=== PATIENT | male | born 1955 | race Caucasian/White ===

== ENCOUNTER 2022-06-02 12:44 | Outpatient (RCR) | payer MEDICARE, MEDICAID, SELFPAY ==
--- NOTE | 2022-06-02 14:21 | PTOPEVAL1 ---
Assessment and note entered by JT File, PT Evaluation Information Assessment Status Evaluation Diagnosis L L4 radiculopathy s/p lumbar fusion Subjective Information patient reports he is coming to therapy for rehab of his back after a fusion of L2-4. he reports he fell in july of this year on his tailbone/back 2 times. he reports since then he has had pain from his lower back down hi buttock and through the front of the thigh to the knee of the L LE. he reports the last 2-3 weeks the pain has been unbearable. he reports he had surgery back in may of 2018. he reports he has had no surgery since 2018. he reports he is complicated by arthritis in other joints, especially his knees. he reports he is haveing knee reaplcement on the L and R knee early next year. he reports he has had xrays taken of the lower back and reports initially he was told everything appears to be stable, but upon 2nd xray evaluation he was told his fusion may have failed during his fall. he reports he has had an mri to confirm, and reports the MRI confirms his fusion has failed. he reports he had an injection that only lasted a few days. he reports currently no plan to go back in and operate on the lower back to fix the failure. he reports since his surgery in 2018, he had no pain until his fall. he reports he has increased pain in the L LE when on his feet. he reports no pain when resting in his recliner with his feet elevated. he reports he has had to resort to using a walker to get around the home. Reported Pain Level Pain Score 7: Self Report Assessment PT Clinical Summary mr. beasley presents to skilled PT services for evaluation and treatment of L lumbar radiculopathy from a failed lumbar fusion after 2 falls on ice. he presents this date with signs and symptoms consistent with L hip OA, bilateral knee OA, and L lumbar radiculopathy. he would do well to attend skilled PT to improve his objective/functional deficits and progress towards a return to his prior level functional activity performance and quality of life. Plan of Care Interventions Electrical Stimulation,Gait Training,Hot Pack/Cold Pack,Manual Therapy,Neuro Re-education,Patient/ Caregiver Educati,Therapeutic Activities, Therapeutic Exercise PT Services Indicated Yes Treatment Frequency and 2x weekly f
== END 2022-06-15 13:44 | disposition home or self-care (01) ==
LOC: CHSPT 12:44
DX: M54.16 Radiculopathy, lumbar region (principal)
CPT/HCPCS: 97014; 97110; 97161; G0283

== ENCOUNTER 2022-06-22 16:11 | Outpatient (CLI) | payer MEDICARE, MEDICAID, SELFPAY ==
--- NOTE | ~2022-06-22 | XR_ITS ---
EXAMINATION: XR chest 2V 06/22/2022 16:29 INDICATION: Preop. PROCEDURE: 2 view chest COMPARISON: No prior studies for comparison. FINDINGS: The lungs are clear. The cardiomediastinal silhouette is within normal limits. There are no pleural effusions. There is no pneumothorax suspected. IMPRESSION: 1: NO ACUTE CARDIOPULMONARY DISEASE. Reviewed, dictated and finalized at location A. [facility] DISPENSER
--- NOTE | 2022-06-22 16:32 | ECG_ITS ---
Measurements Intervals [place] Rate: 83 P: 36 NH: 145 QRS: 17 QRSD: 96 T: 37 QT: 374 QTc: 440 Interpretive Statements SINUS RHYTHM WITH SINUS ARRHYTHMIA ATRIAL PREMATURE COMPLEXES BASELINE ARTIFACT- II, III, AVF BORDERLINE ECG NO PREVIOUS ECG AVAILABLE FOR COMPARISON Electronically Signed On 06-22-2022 20:37:08 [employer]PER[employer] by Oleg Garcia D.O.
== END 2022-06-22 16:12 | disposition home or self-care (01) ==
PROVIDERS: PCP Physician Assistant; Visit Provider Physician Assistant
DX: Z01.818 Encounter for other preprocedural examination (principal); I49.8 Other specified cardiac arrhythmias
CPT/HCPCS: 71046; 93005

== ENCOUNTER 2022-06-26 14:49 | Outpatient (CLI) | payer MEDICARE, MEDICAID, SELFPAY ==
[2022-06-26 15:00] LABS: Add Urine Microscopic? NO; Appearance Urine Clear (Clear); Bilirubin Urine Negative (Negative); Blood Urine Negative (Negative); Color Urine Light Yellow (Yellow); Glucose Urine UA Negative (Negative); Ketones Urine Negative (Negative); Leukocyte Esterase Ur Negative (Negative); Nitrate Urine Negative (Negative); Protein Urine Negative (Negative); Specific Grav Ur <= 1.005 (1.010-1.020); Urobilinogen Urine 0.2 mg/dL (0.2-1.0); pH Urine 6.5 (5.0-8.0)
== END 2022-06-26 14:50 | disposition home or self-care (01) ==
LOC: CHSLAB 14:51
PROVIDERS: PCP Physician Assistant; Visit Provider Physician Assistant
DX: Z01.818 Encounter for other preprocedural examination (principal)
CPT/HCPCS: 81003